=== PATIENT | male | born 1980 | race Caucasian/White ===

== ENCOUNTER 2016-07-24 09:52 | Emergency (ER) | payer SELFPAY ==
[~2016-07-24] VITALS: Ht 182.9 cm; Wt 83.9 kg
[2016-07-24 10:07] VITALS: Ht 182.9 cm; Wt 83.9 kg
[2016-07-24] MEDS ORDERED: ONDANSETRON (ODT) 4 MG TAB ODT STA (10:26)
[2016-07-24] MEDS ORDERED: KETOROLAC 60 MG INJ IM STA (10:29)
[2016-07-24] MEDS ORDERED: HYDROCODONE/APAP (5/325) TAB PO ONE (10:30)
[2016-07-24] MEDS ORDERED: morphine 10 MG INJ IM ONE (12:00)
--- NOTE | 2016-07-24 12:39 | RADRPT ---
PROCEDURE: Shoulder x-ray CLINICAL INDICATION: Pain TECHNIQUE: Left shoulder 3 views COMPARISON: None FINDINGS: 3 views of the left shoulder demonstrate no displaced fracture. The humeral head articulates anatom ically with the glenoid fossa. The acromioclavicular articulation is within normal limits. Bones a re normally mineralized. Soft tissues are unremarkable. IMPRESSION: No acute fracture dislocation No significant degenerate change RPTAT: HH .Adrien Li MD, Date Time Electronically viewed and signed by .Adrien Li MD, on 07/24/2016 12:39 .W/
--- NOTE | 2016-07-24 12:40 | RADRPT ---
PROCEDURE: XR Forearm. CLINICAL INDICATION: Left forearm TECHNIQUE: 2 views of the left forearm were obtained. COMPARISON: No prior studies are available for comparison. FINDINGS: There is an acute impacted intra-articular distal radius fracture with mild dorsal angulation. Ther e is soft tissue swelling about the wrist. There is plate and screw fixation of the radial shaft. No additional fractures are identified. IMPRESSION: 1. Acute impacted intra-articular distal radius fracture with mild dorsal angulation and surrounding soft tissue swelling. RPTAT: UU .Jorge L Deluna MD, MD Date Time Electronically viewed and signed by .Jorge L Deluna MD, on 07/24/2016 12:40 .K/
--- NOTE | 2016-07-24 12:41 | RADRPT ---
PROCEDURE: XR left Hand. CLINICAL INDICATION: Fall TECHNIQUE: Three views of the left hand were obtained. COMPARISON: No prior studies are available for comparison. FINDINGS: There is a comminuted fracture of the distal radius with mild displacement of the fracture fragments and dorsal angulation of the articular surface. There is cortical irregularity at the posterior ma rgin of the carpal bones, likely related to a triquetral fracture. The metacarpals and phalanges avery ear intact. There is partially visualized hardware at the distal radius. IMPRESSION: 1. Comminuted, dorsally angulated distal radial fracture. 2. Cortical irregularity at the dorsal margins of the carpus, likely related to a triquetral fractu re. 3. Partially visualized distal radial hardware. RPTAT: RR .Mendoza Burns MD, MD Date Time Electronically viewed and signed by .Mendoza Burns MD, MD on 07/24/2016 12:40 .d/
--- NOTE | 2016-07-24 12:41 | RADRPT ---
PROCEDURE: XR Humerus. CLINICAL INDICATION: Fall TECHNIQUE: AP and lateral views of the left humerus were obtained. COMPARISON: No prior studies are available for comparison. FINDINGS: There is normal mineralization and alignment. No fracture or osseous lesion is identified. There are normal joints without evidence of arthritis or effusion. The soft tissues are unremarkable. IMPRESSION: 1. Unremarkable left humerus x-ray series. RPTAT: RR .Mendoza Burns MD, MD Date Time Electronically viewed and signed by .Mendoza Burns MD, on 07/24/2016 12:41 .d/
--- NOTE | 2016-07-24 12:45 | RADRPT ---
PROCEDURE: XR Left rib series. CLINICAL INDICATION: Fall TECHNIQUE: Four views of the left rib cage are available for review COMPARISON: None available FINDINGS: The osseous structures, articular spaces, and surrounding soft tissues of the left rib cage are inta ct. No acute fracture or dislocation is seen. No radiopaque foreign body is identified. The visual ized portions of the underlying lung is clear. IMPRESSION: 1. Unremarkable left rib cage x-ray series. Other changes of .Mendoza Burns MD, Date Time Electronically viewed and signed by .Mendoza Burns MD, MD on 07/24/2016 12:44 .d/
--- NOTE | 2016-07-24 12:46 | RADRPT ---
PROCEDURE: XR Elbow. CLINICAL INDICATION: Fall TECHNIQUE: AP and lateral views of the left elbow are available for review COMPARISON: None available FINDINGS: There is no acute osseous or articular abnormality. No evidence for fracture. The radiocapitellar and ulnohumeral articular surfaces are preserved. No evidence for joint effusion or soft tissue ca lcifications. IMPRESSION: 1. No acute osseous abnormality. RPTAT: RR .Mendoza Burns MD, MD Date Time Electronically viewed and signed by .Mendoza Burns MD, MD on 07/24/2016 12:45 .d/
[2016-07-24] MEDS ORDERED: NAPR-260 PO (13:07)
[2016-07-24] MEDS ORDERED: HYDR-906 PO (13:07)
--- NOTE | 2016-07-24 13:53 | ERD ---
ER Documentation Chief Complaint Date/Time DATE: 07/24/16 TIME: 13:47 Chief Complaint MECHANICAL FALL FROM 5' ONTO LT ELBOW/WRIST. DENIES LOSS OF CONSCIOUSNESS. HPI This patient is a [id number] 36-year-old male with no significant medical history presenting to the emergency department for left wrist, left forearm, and left elbow pain after falling from a 5 foot distance onto his outstretched left hand today 45 minutes prior to arrival. The patient works as a straddle truck driver and was standing up on a platform when another employee ran a forklift into the platform causing him to fall off on to his outstretched left hand. The patient rates his pain as severe. The patient is taken no medications for his pain. The patient denies any numbness, tingling, weakness of the arm. There are no other injuries. There is no loss of consciousness. No other symptoms to report at this time. ROS All systems reviewed and are negative except as per history of present illness. Medications Home Meds Active Scripts Naproxen* (Naprosyn*) 500 Mg Tablet, 500 MG PO BID Y for PAIN AND/OR INFLAMMATION, #30 TAB Prov:JF KINNEY PA-C 07/24/16 Hydrocodone/Acetaminophen ([place] 5-325 Tablet) 1 Each Tablet, 1 TAB PO Q6H Y for PAIN, #20 TAB Prov:JF KINNEY PA-C 07/24/16 Allergies Allergies: Coded Allergies: No Known Allergy (Unverified , 07/24/16) PMhx/Soc History of Surgery: Yes (LEG AND ARM SURGERY) Hx Alcohol Use: No Hx Substance Use: No Hx Tobacco Use: No Smoking Status: Never smoker FmHx Noncontributory for chief complaint Physical Exam Vitals Vital Signs Date Time Temp Pulse Resp B/P Pulse Ox O2 Delivery O2 Flow Rate FiO2 07/24/16 10:07 98.6 55 20 133/86 98 Physical Exam INITIAL VITAL SIGNS: Reviewed by me. GENERAL: Alert and interactive. No acute distress. HEAD: Head is normocephalic and atraumatic. EYES: EOMI. No scleral icterus. No conjunctival injection. ENT: Moist mucosa. NECK: Supple. Full range of motion. RESPIRATORY: Normal respiratory effort. Clear breath sounds bilaterally. No wheezing, rales, or rhonchi. CV: Regular rate and rhythm. Normal S1 S2. No S3 or S4. No murmurs. ABDOMEN: Soft, non-distended, non-tender. No guarding. No rebound. No masses. EXTREMITIES: There is mild deformity with ecchymosis and edema of the left wrist. There is tenderness to palpation of the left wrist and left elbow. There is mild edema to the left elbow. The patient has limited passive and active range of motion of the left upper extremity secondary to pain. Sensation is intact in all extremities. SKIN: Warm and dry. NEUROLOGIC: Alert and oriented x 4. Speech is normal. Moves all extremities equally. No motor or sensory deficits noted. Results 24 hrs Current Medications Medications (Trade) Dose Ordered Sig/Sheela Route PRN Reason Start Time Stop Time Status Last Admin Dose Admin Ondansetron HCl (Zofran Odt) 4 mg ONCE STAT ODT 07/24/16 10:26 07/24/16 10:28 DC 07/24/16 10:42 Acetaminophen/ Hydrocodone Bitart ([place] (5/325)) 1 tab ONCE ONCE PO 07/24/16 10:30 07/24/16 10:31 DC 07/24/16 10:42 Ketorolac Tromethamine (Toradol) 60 mg ONCE STAT IM 07/24/16 10:29 07/24/16 10:30 DC 07/24/16 10:42 Morphine Sulfate (morphine) 4 mg ONCE ONCE IM 07/24/16 12:00 07/24/16 12:01 DC 07/24/16 12:41 Procedures/MDM EMERGENCY DEPARTMENT COURSE / MEDICAL DECISION MAKING: This is a 36-year-old male who comes to the emergency room secondary to complaints of left upper extremity pain after fall just prior to arrival. The patient fell onto his outstretched left hand. The patient was given IM morphine, IM Toradol, p.o. [place] in the department. On re-evaluation, the patient was feeling improved. Radiology: PROCEDURE: XR Elbow. CLINICAL INDICATION: Fall TECHNIQUE: AP and lateral views of the left elbow are available for review COMPARISON: None available FINDINGS: There is no acute osseous or articular abnormality. No evidence for fracture. The radiocapitellar and ulnohumeral articular surfaces are preserved. No evidence for joint effusion or soft tissue calcifications. IMPRESSION: 1. No acute osseous abnormality. RPTAT: RR .Mendoza Burns MD, MD Date Time Electronically viewed and signed by .Mendoza Burns MD, MD on 07/24/2016 12:45 PROCEDURE: XR Forearm. CLINICAL INDICATION: Left forearm TECHNIQUE: 2 views of the left forearm were obtained. COMPARISON: No prior studies are available for comparison. FINDINGS: There is an acute impacted intra-articular distal radius fracture with mild dorsal angulation. There is soft tissue swelling about the wrist. There is plate and screw fixation of the radial shaft. No additional fractures are identified. IMPRESSION: 1. Acute impacted intra-articular distal radius fracture with mild dorsal angulation and surrounding soft tissue swelling. RPTAT: UU .Jorge L Deluna MD, MD Date Time Electronically viewed and signed by .Jorge L Deluna MD, MD on 07/24/2016 12: 40 PROCEDURE: XR left Hand. CLINICAL INDICATION: Fall TECHNIQUE: Three views of the left hand were obtained. COMPARISON: No prior studies are available for comparison. FINDINGS: There is a comminuted fracture of the distal radius with mild displacement of the fracture fragments and dorsal angulation of the articular surface. There is cortical irregularity at the posterior margin of the carpal bones, likely related to a triquetral fracture. The metacarpals and phalanges appear intact. There is partially visualized hardware at the distal radius. IMPRESSION: 1. Comminuted, dorsally angulated distal radial fracture. 2. Cortical irregularity at the dorsal margins of the carpus, likely related to a triquetral fracture. 3. Partially visualized distal radial hardware. RPTAT: RR .Mendoza Burns MD, MD Date Time Electronically viewed and signed by .Mendoza Burns MD, MD on 07/24/2016 12:40 PROCEDURE: XR Humerus. CLINICAL INDICATION: Fall TECHNIQUE: AP and lateral views of the left humerus were obtained. COMPARISON: No prior studies are available for comparison. FINDINGS: There is normal mineralization and alignment. No fracture or osseous lesion is identified. There are normal joints without evidence of arthritis or effusion. The soft tissues are unremarkable. IMPRESSION: 1. Unremarkable left humerus x-ray series. RPTAT: RR .Mendoza Burns MD, MD Date Time Electronically viewed and signed by .Mendoza Burns MD, MD on 07/24/2016 12:41 PROCEDURE: XR Left rib series. CLINICAL INDICATION: Fall TECHNIQUE: Four views of the left rib cage are available for review COMPARISON: None available FINDINGS: The osseous structures, articular spaces, and surrounding soft tissues of the left rib cage are intact. No acute fracture or dislocation is seen. No radiopaque foreign body is identified. The visualized portions of the underlying lung is clear. IMPRESSION: 1. Unremarkable left rib cage x-ray series. Other changes of .Mendoza Burns MD, MD Date Time Electronically viewed and signed by .Mendoza Burns MD, MD on 07/24/2016 12:44 PROCEDURE: Shoulder x-ray CLINICAL INDICATION: Pain TECHNIQUE: Left shoulder 3 views COMPARISON: None FINDINGS: 3 views of the left shoulder demonstrate no displaced fracture. The humeral head articulates anatomically with the glenoid fossa. The acromioclavicular articulation is within normal limits. Bones are normally mineralized. Soft tissues are unremarkable. IMPRESSION: No acute fracture dislocation No significant degenerate change RPTAT: HH .Adrien Li MD, Date Time Electronically viewed and signed by .Adrien Li MD, on 07/24/2016 12:39 The primary diagnosis is left wrist fracture initial encounter. The patient was splinted in the department and was neurovascularly intact post splint application. I have low suspicion for fracture requiring reduction at this time. This case was discussed with supervising ED physician, Dr. Evan Siddiqi, who agreed with emergency department course and recommended close follow-up with orthopedic surgery. The patient was given information for the [facility] and for Dr. Parth Garcia, orthopedic surgeon. Discharge: I have discussed the lab results and diagnostic findings with the patient and answered any questions or concerns. Patient was advised he must follow-up as soon as possible with orthopedic surgery. The patient was discharged with a prescription for naproxen and [place]. The patient was advised to followup with their PMD in 1-2 days and to return to the Emergency Department if there are any new or worsening symptoms. The patient understood and agreed with the diagnosis, treatment and plan. The patient is stable for discharge at this time. Departure Diagnosis: Primary Impression: Left wrist fracture Encounter type: initial encounter Fracture type: closed Qualified Code: S62.102A - Left wrist fracture, closed, initial encounter Condition: Fair Patient Instructions: Fracture, Upper Extremity Referrals: PARTH GARCIA MD [facility] YOU HAVE RECEIVED A MEDICAL SCREENING EXAM AND THE RESULTS INDICATE THAT YOU DO NOT HAVE A CONDITION THAT REQUIRES URGENT TREATMENT IN THE EMERGENCY DEPARTMENT. FURTHER EVALUATION AND TREATMENT OF YOUR CONDITION CAN WAIT UNTIL YOU ARE SEEN IN YOUR DOCTORS OFFICE WITHIN THE NEXT 1-2 DAYS. IT IS YOUR RESPONSIBILITY TO MAKE AN APPOINTMENT FOR FOLOW-UP CARE. IF YOU HAVE A PRIMARY DOCTOR --you should call your primary doctor and schedule an appointment IF YOU DO NOT HAVE A PRIMARY DOCTOR YOU CAN CALL OUR PHYSICIAN REFERRAL HOTLINE AT IF YOU CAN NOT AFFORD TO SEE A PHYSICIAN YOU CAN CHOSE FROM THE FOLLOWING [facility] [address] [facility] [address] [facility] [address] [facility] [address] [facility] [address] [facility]. [facility] [address] Hours: Mon-Thu 9:00 AM - 5:00 PM Additional Instructions: Follow-up with your primary care physician within 1 week. Return to the emergency department immediately should you have any new or worsening symptoms, uncontrolled fevers, or other unexplained symptoms. Take all medications as directed. Make an appointment with Orthopedics as soon as possible. Preferably, today or tomorrow. JF KINNEY PA-C Jul 24, 2016 13:53
== END 2016-07-24 14:29 | disposition home or self-care (01) ==
LOC: FTE 09:52
DX: S52.572A Other intraarticular fracture of lower end of left radius, initial encounter for closed fracture (principal); S52.592A Other fractures of lower end of left radius, initial encounter for closed fracture; W17.89XA Other fall from one level to another, initial encounter; Y92.89 Other specified places as the place of occurrence of the external cause
CPT/HCPCS: 29105; 71100; 73030; 73060; 73080; 73090; 73130; 96372; 99284; J1885; J2270